=== PATIENT | female | born 1930 | race Caucasian/White ===

== ENCOUNTER → 2016-07-17 | Outpatient (CLI) | payer MEDICARE ==
[~2016-07-17] MED LIST: AZIT250T6 PO; CALC-603 PO; DOCU-129 PO; FAMO20TA6 PO; LEVO75TA58 PO; MONT10TA25 PO; MULT-806 PO; SENN8.6T97 PO
== END ==
LOC: WC.BC 14:45
DX: Z12.31 Encounter for screening mammogram for malignant neoplasm of breast (principal); Z80.3 Family history of malignant neoplasm of breast
CPT/HCPCS: 77063; G0202